=== PATIENT | female | born 1985 | race Two or more races ===

== ENCOUNTER 2022-09-15 15:09 | Outpatient (CLI) | payer OTHER | END 2022-09-15 15:10 | disposition left against medical advice (07) | LOC: EMS 15:09 | DX: R10.814 Left lower quadrant abdominal tenderness (principal); R10.813 Right lower quadrant abdominal tenderness; X58.XXXA Exposure to other specified factors, initial encounter ==

== ENCOUNTER 2022-12-13 08:29 | Outpatient (CLI) | payer OTHER ==
--- NOTE | 2022-12-13 10:45 | XRAY Report ---
PROCEDURE: Shoulder 3 View LT INDICATIONS: STRAIN OF MUSCLE AND TENDON OF THE ROTATOR CUFF TECHNIQUE: 3 views of the shoulder were acquired. COMPARISON: None. FINDINGS: Bones: No fractures or dislocations. No suspicious bony lesions. Visualized ribs appear intact. Soft tissues: No suspicious soft tissue calcifications. The visualized lung demonstrates a normal a ppearance. IMPRESSION: No acute bony abnormality. If it would be helpful for clinical management decision making, please consider a dedicated, schedule d shoulder MRI for further evaluation (assuming that there is no contraindication). Reviewed by: Aurelio Jones MD on 12/13/2022 9:43 AM [facility] Approved by: Aurelio Jones MD on 12/13/2022 9:43 AM [facility] Station ID: [id number]
== END 2022-12-13 08:30 | disposition home or self-care (01) ==
LOC: DI 08:29
PROVIDERS: ATTEND Family Medicine
DX: S46.012A Strain of muscle(s) and tendon(s) of the rotator cuff of left shoulder, initial encounter (principal)